=== PATIENT | male | born 1955 | race Caucasian/White ===

== ENCOUNTER 2016-12-26 21:21 | Emergency (ER) | payer OTHER | END 2016-12-26 22:44 | disposition home or self-care (01) | LOC: D.ER 21:21 | DX: L03.811 Cellulitis of head [any part, except face] (principal) ==

== ENCOUNTER 2017-07-21 20:47 | Emergency (ER) | payer OTHER | END 2017-07-22 00:40 | disposition home or self-care (01) | LOC: D.ER 20:47 | DX: B34.9 Viral infection, unspecified (principal) ==

== ENCOUNTER 2018-12-24 19:12 | Inpatient (IN) | payer MEDICAID ==
[~2018-12-24] VITALS: Ht 170.2 cm; Wt 100.0 kg
[2018-12-24 20:03] LABS: BASOPHILS 0.1 % (0-2); EOSINOPHILS 0.1 % (0-7); HEMOGLOBIN 14.4 g/dL (13.5-17.5); IMMATURE GRANULOCYTES 0.3 % (0-5); LYMPHOCYTES 8.4 % (15-50); MCH 31.2 pg (26.0-34.0); MCV 86.8 fL (80.0-100.0); MEAN PLATELET VOLUME 9.5 fL (7.4-10.4); MONOCYTES 7.2 % (2-11); NEUTROPHILS 83.9 % (40-80); RBC 4.61 10x6/uL (4.20-6.10); RDW 12.5 % (11.5-14.5); WBC 9.5 10x3/uL (4.8-10.8)
[2018-12-24 20:05] LABS: PLATELET COUNT 186 10x3/uL (130-400)
[2018-12-24 20:14] LABS: APTT 28.5 SECONDS (22.8-39.4); INR 1.05 (0.85-1.17); PROTIME 13.2 SECONDS (11.6-15.0)
[2018-12-24 20:21] LABS: ALBUMIN 3.5 g/dL (3.4-5.0); ALKALINE PHOSPHATASE 93 U/L (46-116); ALT (SGPT) 23 U/L (10-68); BILIRUBIN - TOTAL 1.29 mg/dL (0.2-1.3); CALC OSMOLALITY 278 mosm/kg (275-300); CALCIUM 7.8 mg/dL (8.5-10.1); CARBON DIOXIDE 28.2 mmol/L (21.0-32.0); CHLORIDE - SERUM 100 mmol/L (98-107); CREATININE - SERUM 1.1 mg/dL (0.6-1.3); GLUCOSE 149 mg/dL (74-106); POTASSIUM - SERUM 4.5 mmol/L (3.5-5.1); PROTEIN - SERUM 6.7 g/dL (6.4-8.2); SODIUM 138 mmol/L (136-145); UREA NITROGEN 13 mg/dL (7-18); eGFR NON AFRICAN AMERICAN 72 mL/min (90-120)
--- NOTE | 2018-12-24 20:34 | NUR ---
PT RESTING IN ROOM QUIETLY AT THIS TIME RESP EVEN AND UNLABORED
[2018-12-24 20:40] LABS: CKMB 0.9 U/L (0.0-3.6); CREATINE KINASE 145 UL (21-232); TROPONIN-I < 0.017 ng/mL (0.000-0.060)
--- NOTE | 2018-12-24 21:00 | NUR ---
ASSISTED MD WITH ASPIRATION OF FLUID FROM LEFT ELBOW. TOLERATED WELL. RESTING IN ROOM QUIETLY AT THIS TIME RESP EVEN AND UNLABORED
[2018-12-24 22:27] LABS: APPEARANCE CLEAR (CLEAR); BILIRUBIN NEGATIVE (NEGATIVE); COLOR YELLOW (YELLOW); GLUCOSE NEGATIVE (NEGATIVE); KETONE NEGATIVE (NEGATIVE); NITRITE NEGATIVE (NEGATIVE); PROTEIN NEGATIVE (NEGATIVE); UROBILINOGEN NORMAL (NORMAL)
--- NOTE | 2018-12-24 22:44 | NUR ---
RESTING IN ROOM QUIETLY AT THIS TIME. RESP EVEN AND UNLABORED CALL LIGHT IN REACH
[2018-12-24 22:58] LABS: NEUT - BF 91 %
[2018-12-24 23:56] VITALS: Ht 170.2 cm; Wt 100.0 kg
--- NOTE | 2018-12-25 | NUR ---
PT ARRIVED TO FLOOR WITHOUT DISTRESS, ALERT AND ORIENTED. IV RIGHT AC INFUSING NS @ 125. ASSESSMENT COMPLETED AT THIS TIME. DENIES NEEDS. CL IN REACH, WILL CTM
[2018-12-25 04:31] VITALS: BP 160/74
--- NOTE | 2018-12-25 07:45 | NUR ---
PT RESTING IN BED. NO ACUTE DISTRESS NOTED. REPORTS PAIN TO LEFT ELBOW 10/10 AT THIS TIME. PAIN MEDICATIONS TO BE ADMINISTERED PER ORDERS. REDNESS NOTED TO LEFT ELBOW, NO DRAINAGE NOTED. IV TO RIGHT AC WITH NS @ 125ML/HR INFUSING VIA PUMP. SITE WITHOUT REDNESS OR EDEMA. DENIES FURTHER NEEDS AT THIS TIME. CL WITHIN REACH. ENCOURAGED TO CALL WITH NEEDS. CONTINUE POC
[2018-12-25 08:32] VITALS: BP 172/86
[2018-12-25 09:52] LABS: BASOPHILS 0 % (0-2); EOSINOPHILS 0.1 % (0-7); HEMATOCRIT 38.7 % (42.0-54.0); HEMOGLOBIN 13.8 g/dL (13.5-17.5); IMMATURE GRANULOCYTES 0.3 % (0-5); LYMPHOCYTES 9.7 % (15-50); MCH 30.9 pg (26.0-34.0); MCHC 35.7 g/dL (31.0-37.0); MCV 86.8 fL (80.0-100.0); MEAN PLATELET VOLUME 9.6 fL (7.4-10.4); MONOCYTES 5.9 % (2-11); PLATELET COUNT 156 10x3/uL (130-400); RBC 4.46 10x6/uL (4.20-6.10); RDW 12.5 % (11.5-14.5); WBC 7.8 10x3/uL (4.8-10.8)
--- NOTE | 2018-12-25 10:30 | NUR ---
SURGERY CONSENTS OBTAINED PER MD ORDERS. PT VOICES UNDERSTANDING TO EVENTS ABOUT TO OCCUR. DENIES QUESTIONS AT THIS TIME.
[2018-12-25 10:39] LABS: ANION GAP 14.2 mmol/L (8-16); BILIRUBIN - TOTAL 1.62 mg/dL (0.2-1.3); CARBON DIOXIDE 23.8 mmol/L (21.0-32.0); CREATININE - SERUM 1.1 mg/dL (0.6-1.3); PROTEIN - SERUM 6.5 g/dL (6.4-8.2)
--- NOTE | 2018-12-25 10:45 | NUR ---
PT TAKEN TO PRE-OP VIA BED FOR PROCEDURE. NO ACUTE DISTRESS NOTED
[2018-12-25 13:50] VITALS: BP 148/84
[2018-12-25 17:33] VITALS: BP 137/75
--- NOTE | 2018-12-25 19:45 | NUR ---
CLIMBING OOB WITHOUT HELP. CONFUSED. GEN WEAKNESS NOTED. DISCONNECTED HEMOVAC FROM LT ELBOW. CAYDEN WRAP IN USE TO LT ELBOW. RATES PAIN IN LUE 10. ALERT AND ORIENTED X2, SELF AND PLACE. CONFUSED TO TIME AND SITUATION. B/P ELEVTAED. YUAN HOSE IN USE BILAT WITH SCDS. RESP NONLABORED. ABD DISTENDED AND FIRM. ENCOURAGED TO USE URINAL. NS @ 125 ML/HR INFUSING IN RT AC. SR ELEVATED X2. CL IN REACH. JO ALARM PLACED ON BED AND IS ON.
--- NOTE | 2018-12-25 20:00 | NUR ---
MEDICATED WITH PERCOCET FOR C/O PAIN IN LT ELBOW RATING 10. CL IN REACH. JO ALARM ON.
[2018-12-25 21:14] VITALS: BP 193/77
[2018-12-26 01:27] VITALS: BP 161/81
--- NOTE | 2018-12-26 01:29 | NUR ---
IV INFILTRATED IN RT AC. IV CATH REMOVED AT THIS TIME.
--- NOTE | 2018-12-26 02:03 | NUR ---
UNABLE TO GET IV RESTARTED DESPITE X4 ATTEMPTS PER STAFF X2 WITH USE OF VEIN FINDER.
[2018-12-26 05:05] VITALS: BP 174/84
[2018-12-26 06:46] LABS: BASOPHILS 0 % (0-2); EOSINOPHILS 0.8 % (0-7); HEMATOCRIT 38.6 % (42.0-54.0); HEMOGLOBIN 13.4 g/dL (13.5-17.5); IMMATURE GRANULOCYTES 0.3 % (0-5); LYMPHOCYTES 20.2 % (15-50); MCH 30.3 pg (26.0-34.0); MCHC 34.7 g/dL (31.0-37.0); MCV 87.3 fL (80.0-100.0); MEAN PLATELET VOLUME 9.6 fL (7.4-10.4); NEUTROPHILS 69.7 % (40-80); PLATELET COUNT 152 10x3/uL (130-400); RBC 4.42 10x6/uL (4.20-6.10); RDW 12.6 % (11.5-14.5)
[2018-12-26 07:11] LABS: ALBUMIN 2.7 g/dL (3.4-5.0); ANION GAP 9.6 mmol/L (8-16); BILIRUBIN - TOTAL 1.11 mg/dL (0.2-1.3); CARBON DIOXIDE 27.6 mmol/L (21.0-32.0); CHOL - HDL RATIO 3.2 ratio (2.3-4.9); CREATININE - SERUM 1.1 mg/dL (0.6-1.3); LDL-HDL RATIO 1.8 ratio (1.5-3.5); POTASSIUM - SERUM 4.2 mmol/L (3.5-5.1); PROTEIN - SERUM 6.1 g/dL (6.4-8.2)
--- NOTE | 2018-12-26 08:00 | NUR ---
PT RESTING IN BED WITH EYES CLOSED. OPENS EYES SPONTANEOUSLY UPON STAFF ENTERING ROOM. NO ACUTE DISTRESS NOTED. RATES PAIN 3/10 AT THIS TIME. DENIES NEED FOR PAIN MEDICATION. LEFT ARM WITH DRESSING INTACT, HEMOVAC DRAIN INTACT AND COMPRESSED WITH SCANT AMOUNT OF BLOODY DRAINAGE. PT DENIES NEEDS AT THIS TIME. CL WITHIN REACH. ENCOURAGED TO CALL WITH NEEDS. CONTINUE POC
[2018-12-26 09:10] VITALS: BP 146/82
[2018-12-26 12:03] VITALS: BP 121/70
[2018-12-26 16:39] VITALS: BP 151/82
--- NOTE | 2018-12-26 20:00 | NUR ---
ALERT RESTING IN BED, DENIES PAIN, CAYDEN WRAP IN PLACE TO LEFT ARM WITH HEMIVAC DRAIN IN USE, SEE SHIFT ASSESSMENT, CALL LIGHT IN REACH
[2018-12-26 20:33] VITALS: BP 154/81
--- NOTE | 2018-12-26 23:45 | NUR ---
IN AND OUT CATH DONE FOR URINE CULTURE ORDERED, TOLERATED WELL
[2018-12-27 00:47] VITALS: BP 140/80
[2018-12-27 05:01] LABS: BASOPHILS 0.2 % (0-2); EOSINOPHILS 2.7 % (0-7); HEMATOCRIT 37.2 % (42.0-54.0); HEMOGLOBIN 12.8 g/dL (13.5-17.5); IMMATURE GRANULOCYTES 0.4 % (0-5); LYMPHOCYTES 24.8 % (15-50); MCH 30.2 pg (26.0-34.0); MCHC 34.4 g/dL (31.0-37.0); MCV 87.7 fL (80.0-100.0); MEAN PLATELET VOLUME 9.6 fL (7.4-10.4); MONOCYTES 10.4 % (2-11); NEUTROPHILS 61.5 % (40-80); PLATELET COUNT 159 10x3/uL (130-400); RBC 4.24 10x6/uL (4.20-6.10); RDW 12.6 % (11.5-14.5); WBC 5.2 10x3/uL (4.8-10.8)
[2018-12-27 05:10] VITALS: BP 123/55
[2018-12-27 05:23] LABS: ALBUMIN 2.4 g/dL (3.4-5.0); ALKALINE PHOSPHATASE 65 U/L (46-116); ALT (SGPT) 15 U/L (10-68); BILIRUBIN - TOTAL 0.64 mg/dL (0.2-1.3); CALC OSMOLALITY 279 mosm/kg (275-300); CALCIUM 7.8 mg/dL (8.5-10.1); CHLORIDE - SERUM 107 mmol/L (98-107); GLUCOSE 101 mg/dL (74-106); POTASSIUM - SERUM 3.9 mmol/L (3.5-5.1); PROTEIN - SERUM 5.8 g/dL (6.4-8.2); SODIUM 140 mmol/L (136-145); UREA NITROGEN 16 mg/dL (7-18); eGFR NON AFRICAN AMERICAN 81 mL/min (90-120)
--- NOTE | 2018-12-27 07:40 | NUR ---
PT RESTING IN BED WITH EYES CLOSED, OPENS EYES SPONTANEOUSLY UPON STAFF ENTERING ROOM. NO ACUTE DISTRESS NOTED. DENIES PAIN AT THIS TIME. IV TO RIGHT UPPER ARM WITH NS @ 125ML/HR INFUSING VIA PUMP. SITE WITHOUT REDNESS OR EDEMA. DRESSING C/D/I TO LEFT ARM WITH HEMOVAC IN PLACE. SMALL AMOUNT OF BLOODY DRAINAGE NOTED TO DRAIN. DENIES FURTHER NEEDS AT THIS TIME. CL WITHIN REACH. ENCOURAGED TO CALL WITH NEEDS. CONTINUE POC
[2018-12-27 08:34] VITALS: BP 169/95
[2018-12-27 13:08] VITALS: BP 151/82
[2018-12-27 16:33] VITALS: BP 145/87
--- NOTE | 2018-12-27 20:00 | NUR ---
ALERT RESTING IN BED, DENIES PAIN, CAYDEN WRAP INTACT TO LEFT ARM, HEMIVAC IN PLACE COMPRESSED, SEE SHIFT ASSESSMENT, CALL LIGHT IN REACH
[2018-12-27 21:48] VITALS: BP 128/64
[2018-12-28 06:07] VITALS: BP 134/60
--- NOTE | 2018-12-28 08:28 | NUR ---
PT RESTING IN BED. WANTING TO GET UP. UNHOOKED SCDS. PT SITTING UP ON SIDE OF VBED. DENIES ANY NEEDS. NO S/S OF ACUTE DISTRESS. CL IN PLACE.
[2018-12-28 08:31] LABS: BASOPHILS 0 % (0-2); EOSINOPHILS 3.4 % (0-7); HEMATOCRIT 38.9 % (42.0-54.0); HEMOGLOBIN 13.7 g/dL (13.5-17.5); IMMATURE GRANULOCYTES 0.2 % (0-5); LYMPHOCYTES 21.8 % (15-50); MCH 30.8 pg (26.0-34.0); MCHC 35.2 g/dL (31.0-37.0); MCV 87.4 fL (80.0-100.0); MEAN PLATELET VOLUME 9.6 fL (7.4-10.4); MONOCYTES 6.8 % (2-11); NEUTROPHILS 67.8 % (40-80); PLATELET COUNT 187 10x3/uL (130-400); RBC 4.45 10x6/uL (4.20-6.10); RDW 12.5 % (11.5-14.5); WBC 5.3 10x3/uL (4.8-10.8)
[2018-12-28 08:41] LABS: ALBUMIN 2.6 g/dL (3.4-5.0); ALKALINE PHOSPHATASE 72 U/L (46-116); ALT (SGPT) 17 U/L (10-68); BILIRUBIN - TOTAL 0.55 mg/dL (0.2-1.3); CALC OSMOLALITY 280 mosm/kg (275-300); CALCIUM 8.1 mg/dL (8.5-10.1); CARBON DIOXIDE 26.6 mmol/L (21.0-32.0); CHLORIDE - SERUM 105 mmol/L (98-107); GLUCOSE 118 mg/dL (74-106); PROTEIN - SERUM 6.4 g/dL (6.4-8.2); SODIUM 140 mmol/L (136-145); UREA NITROGEN 15 mg/dL (7-18); eGFR NON AFRICAN AMERICAN 81 mL/min (90-120)
[2018-12-28 09:24] VITALS: BP 151/90
--- NOTE | 2018-12-28 09:47 | MORECARE ---
CASE MANAGEMENT DISCHARGE SUMMARY PATIENT: ADITYA COVARRUBIAS UNIT: [id number] ADM DATE: 12/24/18 AGE: 63 : 59 SEX: M ROOM/BED: D.2235 AUTHOR: GUZMAN MARTÍNEZ PHYSICIAN: REFERRING PHYSICIAN: MILIND PUGH MD DATE OF SERVICE: 12/28/18 Discharge Plan Patient Name: ADITYA COVARRUBIAS [facility] : 1955 Planned Disposition: Home Anticipated Discharge Date: 12/28/18 Discharge Date: Expected LOS: 4 Initial Reviewer: [email or web address] Initial Review Date: 12/28/2018 Generated: 12/28/18 10:47 am DCPIA - Discharge Planning Initial Assessment Updated by [email or web address]: Porsha Gay on 12/28/18 9:47 am * Is the patient Alert and Oriented? Yes * How many steps to enter\exit or inside your home? 0/0 * PCP No PCP * [facility] [address] * Preadmission Environment Home Alone * ADLs Independent * Equipment None * List name and contact numbers for known caregivers / representatives who currently or will assist patient after discharge: Catherine Covarrubias - Brother - [phone] * Verbal permission to speak to the caregivers and representatives has been obtained from the patient. Yes * Community resources currently utilized None * Additional services required to return to the preadmission environment? No * Can the patient safely return to the preadmission environment? Yes * Has this patient been hospitalized within the prior 30 days at any hospital? No Patient Name: ADITYA COVARRUBIAS Page [id number] at 0947 All edits/amendments must be made on the electronic document DICTATION DATE: 12/28/18946 CUSTOMER ASSISTANCE REPRESENTATIVE: LEXIE 12/28/18946 RPT#: [id number] DC DATE: STATUS: ADM IN [facility] [address] [place] [address] END OF REPORT
--- NOTE | 2018-12-28 09:54 | MORECARE ---
CASE MANAGEMENT DISCHARGE SUMMARY PATIENT: ADITYA COVARRUBIAS UNIT: [id number] ADM DATE: 12/24/18 AGE: 63 : 59 SEX: M ROOM/BED: D.2235 AUTHOR: GUZMAN MARTÍNEZ PHYSICIAN: REFERRING PHYSICIAN: MILIND PUGH MD DATE OF SERVICE: 12/28/18 Discharge Plan Patient Name: ADITYA COVARRUBIAS Facility: [facility]:[place] : 1955 Planned Disposition: Home Anticipated Discharge Date: 12/28/18 Discharge Date: Expected LOS: 4 Initial Reviewer: [email or web address] Initial Review Date: 12/28/2018 Generated: 12/28/18 10:54 am Comments DCP- Discharge Planning Updated by [email or web address]: Porsha Gay on 12/28/18 8:[address] Patient Name: ADITYA COVARRUBIAS Admission Status: ER Accout number: [id number] Admission Date: 12-24-2018 : 1955 Admission Diagnosis:OTHER INFECTIVE BURSITIS, LEFT ELBOW Attending: ANNETTE PUGH Current LOS: 4 Anticipated DC Date: 12-28-2018 Planned Disposition: Home Primary Insurance: MEDICAID [place] PENDING CM met with patient to complete initial dc planning assessment. CM educated patient on the CM role and verbal consent given by patient to complete assessment. Patient lives at home alone. At discharge patient plans to return and feels this is a safe discharge. CM discussed availability of home health, rehab services, and medical equipment. Patient denied known discharge needs at this time. He states his "partner" will pick him up today. He states he will be able to purchase his antibiotics on discharge. CM will continue to follow and will assist as needed with dc plans/needs. Discharge Planning Comments: National Sales Director: Porsha Gay DCPIA - Discharge Planning Initial Assessment Updated by [email or web address]: Porsha Gay on 12/28/18 9:47 am * Is the patient Alert and Oriented? Yes * How many steps to enter\\exit or inside your home? 0/0 * PCP No PCP * [facility] [address] * Preadmission Environment Home Alone * ADLs Independent * Equipment None * List name and contact numbers for known caregivers / representatives who currently or will assist patient after discharge: Catherine Covarrubias - Brother - [phone] * Verbal permission to speak to the caregivers and representatives has been obtained from the patient. Yes * Community resources currently utilized None * Additional services required to return to the preadmission environment? No * Can the patient safely return to the preadmission environment? Yes * Has this patient been hospitalized within the prior 30 days at any hospital? No Last DP export: 12/28/18 8:47 a Patient Name: ADITYA COVARRUBIAS Page [id number] at 0954 All edits/amendments must be made on the electronic document DICTATION DATE: 12/28/18953 UROGYNECOLOGY PHYSICIAN: LEXIE 12/28/18953 RPT#: [id number] DC DATE: STATUS: ADM IN [facility] [address] [place] [address] END OF REPORT
[2018-12-28 12:58] VITALS: BP 127/79
[2018-12-28 16:32] VITALS: BP 136/84
--- NOTE | 2018-12-28 18:17 | NUR ---
PT RESTING IN BED. CHANGED PICC LINE DRESSING DT BEING BLOODY. NO S/S OF ACUTE DISTRESS. CL IN PLACE.
[2018-12-28 20:43] VITALS: BP 108/72
[2018-12-29 00:52] VITALS: BP 133/76
[2018-12-29 04:48] VITALS: BP 135/77
[2018-12-29] MEDS ORDERED: FLORAJEN3 CAPS460 MG PO (07:47)
[2018-12-29] MEDS ORDERED: LISINOPRIL10 MG PO (07:47)
[2018-12-29] MEDS ORDERED: HCTZ25 MG PO (07:48)
[2018-12-29] MEDS ORDERED: BACTRIM 400-801 TAB PO (07:49)
[2018-12-29] MEDS ORDERED: DOXYCYCLINE HY100 M2 PO (07:49)
--- NOTE | 2018-12-29 08:05 | NUR ---
PT RESTING IN BED WATCHING TV. NO S/S OF ACUTE DISTRESS. CL IN PLACE.
[2018-12-29 08:34] LABS: BASOPHILS 0.1 % (0-2); EOSINOPHILS 2.4 % (0-7); HEMATOCRIT 39.1 % (42.0-54.0); HEMOGLOBIN 13.7 g/dL (13.5-17.5); IMMATURE GRANULOCYTES 0.4 % (0-5); LYMPHOCYTES 20.7 % (15-50); MCH 30.6 pg (26.0-34.0); MCV 87.5 fL (80.0-100.0); MEAN PLATELET VOLUME 9.8 fL (7.4-10.4); MONOCYTES 6.9 % (2-11); NEUTROPHILS 69.5 % (40-80); PLATELET COUNT 204 10x3/uL (130-400); RBC 4.47 10x6/uL (4.20-6.10); RDW 12.2 % (11.5-14.5)
[2018-12-29 08:39] LABS: WBC 7.4 10x3/uL (4.8-10.8)
[2018-12-29] MEDS ORDERED: NORCO PO (08:41)
--- NOTE | 2018-12-29 08:45 | MORECARE ---
CASE MANAGEMENT DISCHARGE SUMMARY PATIENT: ADITYA COAVRRUBIAS UNIT: [id number] ADM DATE: 12/24/18 AGE: 63 : 59 SEX: M ROOM/BED: D.2235 AUTHOR: GUZMAN MARTÍNEZ PHYSICIAN: REFERRING PHYSICIAN: MILIND PUGH MD DATE OF SERVICE: 12/29/18 Discharge Plan Patient Name: ADITYA COVARRUBIAS Facility: [facility]:[place] : 1955 Planned Disposition: Home Anticipated Discharge Date: 12/28/18 Discharge Date: Expected LOS: 4 Initial Reviewer: [email or web address] Initial Review Date: 12/28/2018 Generated: 12/29/18 9:44 am Comments DCP- Discharge Planning Updated by [email or web address]: Chiquis Frederick on 12/29/18 7:[address] Patient Name: ADITYA COVARRUBIAS Admission Status: ER Accout number: [id number] Admission Date: 12-24-2018 : 1955 Admission Diagnosis:OTHER INFECTIVE BURSITIS, LEFT ELBOW Attending: ANNETTE PUGH Current LOS: 5 Anticipated DC Date: 12-28-2018 Planned Disposition: Home Primary Insurance: MEDICAID [place] PENDING Discharge Planning Comments: Ortho at dc wants a few HH visits. WILIAM signed for [facility]. Info given to [facility] for eval and admit. Investigator Cash Shortage: Chiquis Frederick DCP- Discharge Planning Updated by [email or web address]: Porsha Gay on 12/28/18 8:[address] Patient Name: ADITYA COVARRUBIAS Admission Status: ER Accout number: [id number] Admission Date: 12-24-2018 : 1955 Admission Diagnosis:OTHER INFECTIVE BURSITIS, LEFT ELBOW Attending: ANNETTE PUGH Current LOS: 4 Anticipated DC Date: 12-28-2018 Planned Disposition: Home Primary Insurance: MEDICAID [place] PENDING CM met with patient to complete initial dc planning assessment. CM educated patient on the CM role and verbal consent given by patient to complete assessment. Patient lives at home alone. At discharge patient plans to return and feels this is a safe discharge. CM discussed availability of home health, rehab services, and medical equipment. Patient denied known discharge needs at this time. He states his "partner" will pick him up today. He states he will be able to purchase his antibiotics on discharge. CM will continue to follow and will assist as needed with dc plans/needs. Discharge Planning Comments: Investigator Cash Shortage: Porsha Gay DCPIA - Discharge Planning Initial Assessment Updated by [email or web address]: Porsha Gay on 12/28/18 9:47 am * Is the patient Alert and Oriented? Yes * How many steps to enter\\exit or inside your home? 0/0 * PCP No PCP * [facility] [address] * Preadmission Environment Home Alone * ADLs Independent * Equipment None * List name and contact numbers for known caregivers / representatives who currently or will assist patient after discharge: Catherine Covarrubias - Brother - [phone] * Verbal permission to speak to the caregivers and representatives has been obtained from the patient. Yes * Community resources currently utilized None * Additional services required to return to the preadmission environment? No * Can the patient safely return to the preadmission environment? Yes * Has this patient been hospitalized within the prior 30 days at any hospital? No Coverage Notice Reviewer: [email or web address] Lacey Frederick Notice Issued Date-Time: 12/29/2018 8:30 Notice Type: IM Discharge Notice Notice Delivered To: Patient Relationship to Patient: Self Alternative Medicine Practitioner Name: Delivery Method: HAND - Hand Delivered Leila Days: Prior Verbal Notification: Recipient Understood Notice: Yes Recipient Signature: Yes Med Rec Note Co-signed by Attending: Coverage Notice Comment: Last DP export: 12/28/18 8:54 a Patient Name: ADITYA COVARRUBIAS Page [phone] at 0845 All edits/amendments must be made on the electronic document DICTATION DATE: 12/29/1844 CROWN BUFFER: LEXIE 12/29/18 0844 RPT#: [id number] DC DATE: STATUS: ADM IN [facility] [address] [place] [address] END OF REPORT
[2018-12-29 08:55] LABS: ALBUMIN 2.6 g/dL (3.4-5.0); ALKALINE PHOSPHATASE 68 U/L (46-116); ALT (SGPT) 20 U/L (10-68); BILIRUBIN - TOTAL 0.63 mg/dL (0.2-1.3); CALC OSMOLALITY 278 mosm/kg (275-300); CALCIUM 8.4 mg/dL (8.5-10.1); CARBON DIOXIDE 24.9 mmol/L (21.0-32.0); CHLORIDE - SERUM 107 mmol/L (98-107); CREATININE - SERUM 0.9 mg/dL (0.6-1.3); GLUCOSE 103 mg/dL (74-106); POTASSIUM - SERUM 4.1 mmol/L (3.5-5.1); PROTEIN - SERUM 6.3 g/dL (6.4-8.2); SODIUM 139 mmol/L (136-145); UREA NITROGEN 15 mg/dL (7-18); eGFR NON AFRICAN AMERICAN > 90 mL/min (90-120)
[2018-12-29 08:58] VITALS: BP 144/89
--- NOTE | 2018-12-29 09:20 | NUR ---
DC MIDLINE WITH TIP INTACT. DC INSTRUCTIONS AND EDUCATION DONE WITH PT. PT TOOK ALL BELONGINGS DOWN. AMBULATED OFF FLOOR. STEADY GAIT. NO S/S OF ACUTE DISTRESS.
--- NOTE | 2018-12-31 07:34 | MORECARE ---
CASE MANAGEMENT DISCHARGE SUMMARY PATIENT: ADITYA COVARRUBIAS UNIT: [id number] ADM DATE: 12/24/18 AGE: 63 : 59 SEX: M ROOM/BED: D.2235 AUTHOR: MAURICIODOC PHYSICIAN: REFERRING PHYSICIAN: MILIND PUGH MD DATE OF SERVICE: 12/31/18 Discharge Plan Patient Name: ADITYA COVARRUBIAS Facility: [facility]:[place] : 1955 Planned Disposition: Home Anticipated Discharge Date: 12/28/18 Discharge Date: 12/29/2018 Expected LOS: 4 Initial Reviewer: [email or web address] Initial Review Date: 12/28/2018 Generated: 12/31/18 8:34 am Comments DCP- Discharge Planning Updated by [email or web address]: Chiquis Frederick on 12/29/18 7:[address] Patient Name: ADITYA COVARRUBIAS Admission Status: ER Accout number: [id number] Admission Date: 12-24-2018 : 1955 Admission Diagnosis:OTHER INFECTIVE BURSITIS, LEFT ELBOW Attending: ANNETTE PUGH Current LOS: 5 Anticipated DC Date: 12-28-2018 Planned Disposition: Home Primary Insurance: MEDICAID [place] PEND[place] Discharge Planning Comments: Ortho at dc wants a few HH visits. WILIAM signed for [facility]. Info given to [facility] for eval and admit. Mining Detail Draftsperson: Chiquis Frederick DCP- Discharge Planning Updated by [email or web address]: Porsha Gay on 12/28/18 8:[address] Patient Name: ADITYA COVARRUBIAS Admission Status: ER Accout number: [id number] Admission Date: 12-24-2018 : 1955 Admission Diagnosis:OTHER INFECTIVE BURSITIS, LEFT ELBOW Attending: ANNETTE PUGH Current LOS: 4 Anticipated DC Date: 12-28-2018 Planned Disposition: Home Primary Insurance: MEDICAID [place] PEND[place] CM met with patient to complete initial dc planning assessment. CM educated patient on the CM role and verbal consent given by patient to complete assessment. Patient lives at home alone. At discharge patient plans to return and feels this is a safe discharge. CM discussed availability of home health, rehab services, and medical equipment. Patient denied known discharge needs at this time. He states his "partner" will pick him up today. He states he will be able to purchase his antibiotics on discharge. CM will continue to follow and will assist as needed with dc plans/needs. Discharge Planning Comments: Mining Detail Draftsperson: Porsha Gay DCPIA - Discharge Planning Initial Assessment Updated by [email or web address]: Porsha Gay on 12/28/18 9:47 am * Is the patient Alert and Oriented? Yes * How many steps to enter\\exit or inside your home? 0/0 * PCP No PCP * [facility] [address] * Preadmission Environment Home Alone * ADLs Independent * Equipment None * List name and contact numbers for known caregivers / representatives who currently or will assist patient after discharge: Catherine Covarrubias - Brother - [phone] * Verbal permission to speak to the caregivers and representatives has been obtained from the patient. Yes * Community resources currently utilized None * Additional services required to return to the preadmission environment? No * Can the patient safely return to the preadmission environment? Yes * Has this patient been hospitalized within the prior 30 days at any hospital? No Coverage Notice Reviewer: [email or web address] Lacey Frederick Notice Issued Date-Time: 12/29/2018 8:30 Notice Type: IM Discharge Notice Notice Delivered To: Patient Relationship to Patient: Self Assistant Professor Of Religion Name: Delivery Method: HAND - Hand Delivered Leila Days: Prior Verbal Notification: Recipient Understood Notice: Yes Recipient Signature: Yes Med Rec Note Co-signed by Attending: Coverage Notice Comment: Last DP export: 12/29/18 7:45 a Patient Name: ADITYA COVARRUBIAS Page [id number] at 0734 All edits/amendments must be made on the electronic document DICTATION DATE: 12/31/1833 MOBILITY DEVELOPER: LEXIE 12/31/1833 RPT#: [id number] DC DATE:12/29/18 STATUS: DIS IN [facility] [address] [place] [address] END OF REPORT
== END 2018-12-29 10:43 | disposition home health service (06) | DRG 501 ==
LOC: D.ER 19:12 → D.MS 23:00
PROVIDERS: Emergency Medicine; Orthopaedic Surgery; ADMIT Emergency Medicine; ATTEND Emergency Medicine
PROC: 0PBJ0ZZ Excision of Left Radius, Open Approach (ICD-10-PCS; 2018-12-25)
PROC: 0MT40ZZ Resection of Left Elbow Bursa and Ligament, Open Approach (ICD-10-PCS; 2018-12-25 09:45)
PROC: 05HY33Z Insertion of Infusion Device into Upper Vein, Percutaneous Approach (ICD-10-PCS; principal; 2018-12-26)
DX: M71.122 Other infective bursitis, left elbow (principal); M00.822 Arthritis due to other bacteria, left elbow; E86.0 Dehydration; E83.51 Hypocalcemia; B95.62 Methicillin resistant Staphylococcus aureus infection as the cause of diseases classified elsewhere

== ENCOUNTER 2019-12-26 11:26 | Emergency (ER) | payer MEDICAID ==
[~2019-12-26] VITALS: Ht 170.2 cm; Wt 104.5 kg
[~2019-12-26 11:26] MED LIST: BACTRIM 400-801 TAB PO; DOXYCYCLINE HY100 M2 PO; FLORAJEN3 CAPS460 MG PO; HCTZ25 MG PO; LISINOPRIL10 MG PO; NORCO PO
[2019-12-26 11:40] VITALS: Ht 170.2 cm; Wt 104.5 kg
[2019-12-26] MEDS ORDERED: VOLTAREN75 MG PO (12:52)
[2019-12-26 13:15] VITALS: BP 157/95
== END 2019-12-26 13:05 | disposition home or self-care (01) ==
LOC: D.ER 11:26
DX: S69.91XA Unspecified injury of right wrist, hand and finger(s), initial encounter (principal); W23.0XXA Caught, crushed, jammed, or pinched between moving objects, initial encounter; Y93.9 Activity, unspecified; Y92.9 Unspecified place or not applicable; I10 Essential (primary) hypertension; K21.9 Gastro-esophageal reflux disease without esophagitis